=== PATIENT | female | born 1960 | race African-American/Black ===

== ENCOUNTER 2019-11-20 16:29 | Emergency (ER) | payer MEDICARE ==
[~2019-11-20] VITALS: Ht 157.5 cm; Wt 80.3 kg
[2019-11-20 17:38] LABS: ABSOLUTE EOSINOPHILS 0.2 thou/uL (0.0-0.7); ABSOLUTE LYMPHOCYTES 3.5 thou/uL (0.8-5.3); ABSOLUTE MONOCYTES 0.7 thou/uL (0.0-1.2); ABSOLUTE NEUTROPHILS 3.5 thou/uL (1.6-8.1); BASOPHILS 0.3 %; HEMATOCRIT 34.6 % (37.0-47.0); HEMOGLOBIN 11.3 gm/dL (12.0-15.0); LYMPHOCYTES 44.2 %; MCH 26.3 pg (26.0-34.0); MCHC 32.6 g/dL (28.0-37.0); MCV 80.5 fL (80.0-100.0); MONOCYTES 8.3 %; MPV 7.6 fl. (7.2-11.1); NUCLEATED RBCS 0 /100WBC; PLATELET COUNT* 393 thou/uL (150-400); POLYS 45.2 %; RDW-CV 15.8 % (10.5-14.5); WBC 7.8 thou/uL (4.0-11.0)
[2019-11-20 17:48] LABS: CALCIUM 8.6 mg/dL (8.5-10.1); CREATININE 0.9 mg/dL (0.6-1.3); POTASSIUM 3.2 mmol/L (3.5-5.1)
[2019-11-20 17:49] LABS: URINE BILIRUBIN NEGATIVE (Negative); URINE BLOOD NEGATIVE (Negative); URINE CLARITY CLEAR; URINE COLOR YELLOW; URINE GLUCOSE-RANDOM NEGATIVE (Negative); URINE KETONES NEGATIVE (Negative); URINE LEUKOCYTES-REFLEX NEGATIVE (Negative); URINE NITRITE-REFLEX NEGATIVE (Negative); URINE PROTEIN NEGATIVE (Negative); URINE UROBILINOGEN 0.2 E.U./dl (0.2-1.0)
[2019-11-20 17:52] LABS: TOTAL BILIRUBIN 0.2 mg/dL (<0.1-1.0); TOTAL PROTEIN 7.8 g/dL (6.4-8.2)
[2019-11-20] MEDS ORDERED: IBUPROFEN 800800 M1 PO (18:04)
[2019-11-20] MEDS ORDERED: FLEXERIL PO (18:04)
[2019-11-20 18:32] VITALS: BP 149/70
== END 2019-11-20 18:33 | disposition home or self-care (01) ==
LOC: M.ERS 16:29
PROVIDERS: Emergency Medicine Emergency Medical Services
DX: M54.5 Low back pain (principal); I10 Essential (primary) hypertension; Z88.5 Allergy status to narcotic agent; Z88.6 Allergy status to analgesic agent

== ENCOUNTER 2021-12-09 18:17 | Emergency (ER) | payer OTHER, MEDICAID ==
[~2021-12-09] VITALS: Ht 157.5 cm; Wt 79.4 kg
[~2021-12-09 18:17] MED LIST: FLEXERIL PO; IBUPROFEN 800800 M1 PO
[2021-12-09 18:34] VITALS: BP 170/115
[2021-12-09] MEDS ORDERED: DOXYCYCLINE 10100 MG PO (20:30)
== END 2021-12-09 20:54 | disposition home or self-care (01) ==
LOC: M.ERS 18:17
DX: L02.01 Cutaneous abscess of face (principal); I10 Essential (primary) hypertension; Z88.6 Allergy status to analgesic agent; Z88.8 Allergy status to other drugs, medicaments and biological substances